=== PATIENT | male | born 1955 | race Caucasian/White ===

== ENCOUNTER → 2017-11-28 | Day surgery (SDC) | payer MEDICARE, OTHER ==
[~2017-11-28] MED LIST: ABAT1INJ SC; ABAT1INJ SQ; ADVA45AE INH; ADVA500A INH; ALEV220T14 PO; BUPIVACAINE HCL PF 0.5% 30 ML VIAL ONE; DUONSOL2 NEB; ESOM1CAP6 PO; FLUO-1 PO; FLUO1TAB17 PO; HYDR-3516 PO; IPRAAER INH; LEFL1TAB3 PO; LEFL20TA7 PO; LEVA1AER INH; LEVO.125 PO; LORT5TAB PO; MEDI220T PO; NEXI40CA PO; PRED5 PO; PRED5TAB PO; PROPOFOL 200 MG/20 ML AMP IV ONE; ROPI.25 PO; ROPI2TAB PO; SIMV20TA PO; SYNT125T PO; THEO200T11 PO; THEO200T27 PO; TRIAMCINOLONE ACETONIDE 40 MG/ML VIAL I-ARTICULR ONE; XOPEAER4 INH; ZOCO20TA PO; methylPREDNISolone ACETATE 40 MG/ML VIAL I-ARTICULR ONE
--- NOTE | 2017-11-28 10:26 | M6 ---
cc: Lay Serrano MD DATE: 11/28/2017 PROCEDURE: Fluoroscopic-guided injection, bilateral sacroiliac joints. History and physical was completed and signed. Consent was signed. Procedure site was marked. Medications were listed and reconciled. Pain score was recorded. Allergies were noted. Time out was taken. Fluoroscopy time was recorded where applicable. Sedation was administered or directed by Dr. Serrano. The patient was given oxygen. The patient was monitored by a registered nurse. Total procedure time was greater than 15 minutes. IV was started. Blood pressure cuff, pulse oximeter and EKG were applied. The patient was placed in the prone position on a Thad table, sedated with small amounts of Propofol titrated to effect. Vital signs were monitored and remained stable throughout the procedure. The sacral area was prepped with alcohol and 10% Betadine solution and draped with sterile drapes. Fluoroscopy was used shooting from medial to lateral to clearly visualize the posterior joint line of the bilateral sacroiliac joint. Separate sterile 5 inch, 22-gauge spinal needles were advanced into these joints under fluoroscopic guidance. There was negative aspiration for blood or any other type of fluid and at each location, the patient was given 1 mL of 0.5% Marcaine, 20 mg of Depo-Medrol and 20 mg of Kenalog. Following this, the patient was taken to the recovery room with stable vital signs, neurologically intact. Lay Serrano MD [facility]/TL , 10:14 AM , 10:25 AM
== END | disposition home or self-care (01) ==
LOC: PHSDC 08:43
PROVIDERS: ATTEND Pain Medicine Interventional Pain Medicine
DX: M54.5 Low back pain (principal)
CPT/HCPCS: 99152; G0260; J1030; J3301; 27096